=== PATIENT | male | born 1995 | race Caucasian/White ===

== ENCOUNTER 2018-04-23 12:04 | Inpatient (IN) | payer OTHER ==
[2018-04-23] MEDS ORDERED: SODIUM CHLORIDE 1,000 ML IV STA ×2 (12:23→14:04)
[2018-04-23] MEDS ORDERED: ONDANSETRON 4 MG/2 ML VIAL IVPUSH ONE (12:44)
[2018-04-23 12:54] LABS: BASO % 0.1 % (0-2.0); EOS % 0.4 % (0-4.5); HEMATOCRIT 45.6 % (35.4-49); HEMOGLOBIN 15.3 GM/dL (11.7-16.9); MCHC 33.5 g/dl (32.0-35.9); MEAN CELL VOLUME 86.4 fl (80-96); MONO % 3.9 % (3.8-10.2); NEUT % 92.6 % (42.8-82.8); PLATELET COUNT 234 K/MM3 (134-434); RBC 5.28 M/mm3 (4.00-5.60); RDW 12.4 % (11.9-15.9); WHITE BLOOD COUNT 15.4 K/mm3 (4.0-10.0)
--- NOTE | 2018-04-23 12:57 | PDOC ---
History of Present Illness - General History Source: Patient - History of Present Illness Initial Comments: 04/23/18 12:51 22m with pmh of IDDm presents to the ED for 10x episodes of vomiting since 4am last night. Has been eating pizza earlier that night at a friend's house. A vomiting infant was present in the household at that time but minimal interactions with the patient. Patient has not been able to tolerate food or drink by mouth. Last episode of vomiting was on his way to the ED. Has not taken insulin today since he has no food intake. No other symptoms. No sore throat, URI, URI symptoms or diarrhea. <Darrin Still - Last Filed: 04/23/18 14:59> <Taylor Musa - Last Filed: 04/24/18 14:00> - General Stated Complaint: DIZZNESS/ VOMITING Time Seen by Provider: 04/23/18 12:13 Past History - Past Medical History Asthma: Yes COPD: No Diabetes: Yes - Suicide/Smoking/Psychosocial Hx Smoking History: Current some day smoker Information on smoking cessation initiated: No Hx Alcohol Use: No Substance Use Type: None <Darrin Still - Last Filed: 04/23/18 14:59> <Taylor Musa - Last Filed: 04/24/18 14:00> - Past Medical History Allergies/Adverse Reactions: Allergies Allergy/AdvReac Type Severity Reaction Status Date / Time No Known Allergies Allergy Verified 04/23/18 12:14 Home Medications: Ambulatory Orders Insulin Detemir [Levemir Flextouch] 40 unit SQ AM 04/24/18 Insulin Detemir [Levemir Flextouch] 50 unit SQ HS 04/24/18 Review of Systems - Review of Systems Able to Perform ROS?: Yes Is the patient limited Citizen Of [place] proficient: No Constitutional: Yes: See HPI HEENTM: No: Symptoms Reported Respiratory: No: Symptoms reported Cardiac (ROS): No: Symptoms Reported ABD/GI: Yes: See HPI : No: Symptoms Reported Musculoskeletal: No: Symptoms Reported Integumentary: No: Symptoms Reported Endocrine: No: Symptoms Reported All Other Systems: Reviewed and Negative <Darrin Still - Last Filed: 04/23/18 14:59> *Physical Exam - Vital Signs Last Vital Signs Temp Pulse Resp BP Pulse Ox 97.9 F 75 18 95/55 L 99 04/23/18 12:09 04/23/18 12:09 04/23/18 12:09 04/23/18 12:09 04/23/18 12:09 - Physical Exam General Appearance: Yes: Appropriately Dressed, Mild Distress, Thin HEENT: positive: EOMI, CINTIA, Other (dry oral mucous membranes ) Respiratory/Chest: positive: Lungs Clear, Normal Breath Sounds. negative: Chest Tender, Respiratory Distress Cardiovascular: positive: Regular Rhythm, Regular Rate, S1, S2 Gastrointestinal/Abdominal: positive: Normal Bowel Sounds, Flat, Soft. negative : Tender Musculoskeletal: positive: Normal Inspection. negative: CVA Tenderness Extremity: positive: Normal Capillary Refill, Normal Inspection, Normal Range of Motion Integumentary: positive: Normal Color, Dry, Warm Neurologic: positive: Fully Oriented, Alert, Normal Mood/Affect, Normal Response <Darrin Still - Last Filed: 04/23/18 14:59> - Vital Signs Last Vital Signs Temp Pulse Resp BP Pulse Ox 98.0 F 80 18 128/61 100 04/24/18 10:00 04/24/18 10:00 04/24/18 10:00 04/24/18 10:00 04/24/18 09:00 <Taylor Musa - Last Filed: 04/24/18 14:00> Moderate Sedation - Procedure Monitoring Vital Signs: Procedure Monitoring Vital Signs Temperature 97.9 F 04/23/18 12:09 Pulse Rate 75 04/23/18 12:09 Respiratory Rate 18 04/23/18 12:09 Blood Pressure 95/55 L 04/23/18 12:09 O2 Sat by Pulse Oximetry (%) 99 04/23/18 12:09 <Darrin Still - Last Filed: 04/23/18 14:59> - Procedure Monitoring Vital Signs: Procedure Monitoring Vital Signs Temperature 98.0 F 04/24/18 10:00 Pulse Rate 80 04/24/18 10:00 Respiratory Rate 18 04/24/18 10:00 Blood Pressure 128/61 04/24/18 10:00 O2 Sat by Pulse Oximetry (%) 100 04/24/18 09:00 <Taylor Musa - Last Filed: 04/24/18 14:00> ED Treatment Course - LABORATORY CBC & Chemistry Diagram: 04/23/18 12:30 04/23/18 12:30 <StillDarrin - Last Filed: 04/23/18 14:59> - LABORATORY CBC & Chemistry Diagram: 04/24/18 06:10 04/24/18 10:06 - ADDITIONAL ORDERS Additional order review: 04/23/18 04/23/18 04/23/18 15:14 14:21 12:30 RBC 5.28 MCV 86.4 MCHC 33.5 RDW 12.4 MPV 8.0 D Neutrophils % 92.6 H D Lymphocytes % 3.0 L D Monocytes % 3.9 Eosinophils % 0.4 Basophils % 0.1 POC Glucometer 348 377 - Medications Given in the ED: ED Medications Discontinued Medications Generic Name Dose Route Start Last Admin Trade Name Freq PRN Reason Stop Dose Admin Acetaminophen 1,000 mg 04/23/18 14:01 04/23/18 14:13 Ofirmev Injection - IVPB 04/23/18 14:02 1,000 mg ONCE ONE Administration Acetaminophen 1,000 mg 04/23/18 16:28 04/23/18 18:47 Ofirmev Injection - IVPB 1,000 mg Q6H PRN Administration PAIN LEVEL 6-10 Al Hydroxide/Mg Hydroxide 30 ml 04/23/18 14:01 04/23/18 14:13 Mylanta Oral Suspension - PO 04/23/18 14:02 30 ml ONCE ONE Administration Sodium Chloride 1,000 mls @ 1,000 mls/hr 04/23/18 12:23 04/23/18 12:39 Normal Saline - IV 04/23/18 13:22 1,000 mls/hr ASDIR STA Administration Famotidine/Sodium Chloride 20 mg in 50 mls @ 100 mls/hr 04/23/18 14:01 14:13 Pepcid 20 Mg Premixed Ivpb - IVPB 04/23/18 14:30 100 mls/hr ONCE ONE Administration Sodium Chloride 1,000 mls @ 1,000 mls/hr 04/23/18 14:04 04/23/18 14:13 Normal Saline - IV 04/23/18 15:03 1,000 mls/hr ASDIR STA Administration Sodium Chloride 1,000 mls @ 500 mls/hr 04/23/18 14:30 04/23/18 15:11 1/2 Normal Saline IV 500 mls/hr ASDIR MARTHA Administration Potassium Chloride 10 meq in 100 mls @ 100 mls/hr 04/23/18 14:30 04/23/18 16: 03 Potassium Chloride 10 Meq Premix Ivpb - IVPB 04/23/18 16:29 100 mls/hr Q60M MARTHA Administration Sodium Chloride 1,000 mls @ 250 mls/hr 04/23/18 18:20 04/24/18 04:56 1/2 Normal Saline IV 250 mls/hr ASDIR MARTHA Administration Sodium Chloride 1,000 mls @ 150 mls/hr 04/24/18 09:45 04/24/18 10:11 Normal Saline - IV 150 mls/hr ASDIR MARTHA Administration Insulin Aspart 1 vial 04/23/18 22:00 04/24/18 11:27 Novolog Vial Sliding Scale - SQ 4 units ACHS MARTHA Administration Protocol Insulin Aspart 2 units 04/24/18 06:25 04/24/18 06:44 Novolog Vial SQ 04/24/18 06:26 Not Given ONCE ONE Protocol Insulin Detemir 10 units 04/23/18 18:47 04/23/18 18:57 Levemir Vial SQ 04/23/18 18:48 10 units ONCE ONE Administration Insulin Detemir 10 units 04/24/18 07:00 04/24/18 06:43 Levemir Vial SQ 10 units BID@[id number],2200 MARTHA Administration Insulin Human Regular 10 units 04/23/18 14:50 04/23/18 15:43 Novolin R Vial *For Ivpush Or Iv Drip Only* SQ 04/23/18 14:51 Not Given ONCE ONE Insulin Human Regular 10 units 04/23/18 15:23 04/23/18 15:20 Novolin R Vial *For Ivpush Or Iv Drip Only* IVPUSH 04/23/18 15:24 10 units ONCE ONE Administration Morphine Sulfate 2 mg 04/23/18 15:21 04/23/18 15:42 Morphine Injection - IVPUSH 04/23/18 15:22 2 mg ONCE ONE Administration Ondansetron HCl 4 mg 04/23/18 12:44 04/23/18 13:24 Zofran Injection IVPUSH 04/23/18 12:45 4 mg ONCE ONE Administration Ondansetron HCl 4 mg 04/23/18 16:27 04/23/18 18:47 Zofran Injection IVPUSH 4 mg Q4H PRN Administration NAUSEA AND/OR VOMITING Potassium Chloride 20 meq 04/23/18 14:20 04/23/18 14:27 Potassium Chloride 20 Meq Premix Ivpb - IVPB 04/23/18 14:21 Not Given ONCE ONE <Taylor Musa - Last Filed: 04/24/18 14:00> Medical Decision Making - Medical Decision Making 04/23/18 12:56 22m with vomiting since 4am. Likely viral enteritis vs food intoxication. Less likely DKA. Will check basic labs, US and give NS for fluid replenishment as zofran for nausea. 04/23/18 14:20 Corrected glucose: 141. Anion gap with correctd glucose: 21. glcose 350's, 1+ acetone with 2+ urine ketones. Patient in mild DKA, probably triggered by infection. Will switch to half normal saline, supplement potassium and give insulin. 04/23/18 15:13 Admitted to med surg obs <Darrin Still - Last Filed: 04/23/18 14:59> *DC/Admit/Observation/Transfer - Discharge Dispostion Decision to Admit order: Yes <Darrin Still - Last Filed: 04/23/18 14:59> - Discharge Dispostion Decision to Admit order: Yes <Taylor Musa - Last Filed: 04/24/18 14:00> Diagnosis at time of Disposition: DKA (diabetic ketoacidoses), Dehydration, Type 1 diabetes mellitus - Discharge Dispostion Condition at time of disposition: Good
--- NOTE | 2018-04-23 13:01 | PDOC ---
Attending Attestation - Resident Resident Name: Darrin Still - ED Attending Attestation I have performed the following: I have examined & evaluated the patient, The case was reviewed & discussed with the resident, I agree w/resident's findings & plan - HPI HPI: 04/23/18 13:01 The patient is a 22 year old male, with a significant past medical history of diabetes type I, who presents to the emergency department with vomiting and diarrhea since 4AM. He states he ate pizza at a friends house and the friends baby was sick. He denies blood in either the emesis or loose stools. He reports about 10 episodes of emesis. He denies abdominal pain. compliant with his insulin regimen. The patient denies chest pain, shortness of breath, headache and dizziness. The patient denies fever, chills, and constipation. The patient denies dysuria, frequency, urgency and hematuria. Allergies: NKDA Past surgical history: none reported Social history: denies toxic habits - Physicial Exam PE: 04/23/18 14:02 NAD, well appearing, dry membranes, nl conjunctiva, anicteric; neck supple. lungs clear, RRR, abdomen soft nontender, no rebound or guarding.. STUART x4, no focal neuro deficits. No peripheral edema. normal color for ethnicity, WWP. - Medical Decision Making 04/23/18 14:02 History of present illness documented DDx diagnosis includes DKA, hyperglycemia, dehydration, electrolyte/metabolic derangements, colitis, food poisoning. Acute gastroenteritis, viral syndrome Vital signs reviewed, blood pressure, but mentating, no tachycardia and no respiratory distress. Soft and nontender abdomen, does have some nausea and vomiting, nonbloody and nonbilious. ED course here includes IV fluid hydration, antiemetics, analgesia GI cocktail. labs and lytes with mild leukocytosis and ketones on UA. +ketones and acetones. AGE vs food poisoning, precipitating his mild DKA presentation. Insulin SQ 10 units x1 dose, on half normal saline with potassium repletion. no gap acidosis, well appearing otherwise, malaised 2/2 vomiting - treat as mild case. no imaging indicated at this time, as no abdominal sx, no rebound or guarding. encouraging PO intake, requesting to drink fluids. inpatient team ordered additional insulin prior to optimal onset and effect on glucose, should not be given. rpt FS after an hour from first insulin ordered in the ED. dispo: admit for mild DKA/dehydration from AGE vs food poisoning. 04/23/18 16:39
[2018-04-23] MEDS ORDERED: ONDANSETRON 4 MG/2 ML VIAL ONE (13:21)
[2018-04-23 13:29] LABS: ALBUMIN 4.2 g/dl (3.4-5.0); ALK PHOS 55 U/L (45-117); ANION GAP 16 MMOL/L (8-16); BILIRUBIN,TOTAL 0.7 mg/dL (0.2-1); BLOOD UREA NITROGEN 17 mg/dL (7-18); CHLORIDE 101 mmol/L (98-107); CO2 19 mmol/L (21-32); CREATININE 0.9 mg/dL (0.55-1.3); POTASSIUM 4.5 mmol/L (3.5-5.1); SGOT/AST 12 U/L (15-37); SGPT/ALT 23 U/L (13-61); SODIUM 136 mmol/L (136-145); TOT PROT 7.4 g/dl (6.4-8.2)
[2018-04-23 13:35] LABS: GLUCOSE,RANDOM 389 mg/dL (74-106)
[2018-04-23 13:50] LABS: URINE APPEARANCE CLEAR; URINE BILIRUBIN NEGATIVE (<2.0 mg/dL); URINE COLOR STRAW; URINE GLUCOSE (UA) 3+ (NEGATIVE); URINE KETONE 2+ (NEGATIVE); URINE LEUK ESTERASE NEGATIVE (NEGATIVE); URINE NITRITE NEGATIVE (NEGATIVE); URINE PROTEIN NEGATIVE (NEGATIVE); URINE UROBILINOGEN NEGATIVE mg/dL (0.2-1.0)
[2018-04-23] MEDS ORDERED: MAG HYDROX/AL HYDROX/SIMETH 30 ML UNIT-DOSE CUP PO ONE (14:01)
[2018-04-23] MEDS ORDERED: FAMOTIDINE 20 MG/50 ML IVPB 20 MG/50 ML MG IVPB ONE ×2 (14:01→14:09)
[2018-04-23] MEDS ORDERED: ACETAMINOPHEN 1000 MG/100 ML VIAL (NON FORMULARY) IVPB ONE (14:01)
[2018-04-23] MEDS ORDERED: ACETAMINOPHEN INJECTION 100 ML IVPB ONE (14:09)
[2018-04-23] MEDS ORDERED: MAG HYDROX/AL HYDROX/SIMETH 30 ML UNIT-DOSE CUP ONE (14:09)
[2018-04-23] MEDS ORDERED: POTASSIUM CHLORIDE 20 MEQ PREMIX IVPB 100 ML IVPB ONE (14:20)
[2018-04-23] MEDS ORDERED: SODIUM CHLORIDE 0.45% 1,000 ML IV SCH (14:30)
[2018-04-23 15:02] LABS: ANISOCYTOSIS 0; HELMET CELLS 0; HOWELL-JOLLY BODIES 0; MACROCYTOSIS 0; OVALOCYTE 0; PLATELET ESTIMATE NORMAL; ROULEAU 0; SICKELED CELLS 0; TARGET CELLS 0; TEAR DROP CELLS 0; TOXIC GRANULATION 0
[2018-04-23] MEDS ORDERED: KCL 10 MEQ IVPB 10 MEQ/100 ML INFUS.BAG IVPB ONE ×2 (15:03→16:05)
[2018-04-23] MEDS ORDERED: INSULIN REGULAR HUMAN 100 UNITS/ML *VIAL ONE ×2 (15:04→15:33)
[2018-04-23] MEDS: KCL 10 MEQ IVPB 10 MEQ/100 ML INFUS.BAG IVPB SCH ×2 (15:11→16:03)
[2018-04-23] MEDS: INSULIN REGULAR HUMAN 100 UNITS/ML *VIAL SQ ONE ×2 (15:11→15:43)
[2018-04-23] MEDS ORDERED: morphine CARPU-JECT 2 MG/1 ML DISP.SYRIN IVPUSH ONE (15:21)
[2018-04-23] MEDS ORDERED: INSULIN REGULAR HUMAN 100 UNITS/ML *VIAL IVPUSH ONE (15:23)
[2018-04-23] MEDS ORDERED: MORPHINE SULFATE 2 MG/ML VIAL ONE (15:33)
--- NOTE | 2018-04-23 15:33 | HP ---
CHIEF COMPLAINT: nausea, vomiting, pain abdomen PCP: HISTORY OF PRESENT ILLNESS: 22m with pmh of IDDm presents to the ED for multiple episodes of vomiting since 4am last night. Has been eating pizza earlier that night at a friend's house. A vomiting infant was present in the household at that time but minimal interactions with the patient. Pt states that he is unable to tolerate anything po. Reports episodes of vomiting in ed. He also reports pain abdomen 10/10 in intensity, cramping type, present in epigastric area, lasts for few seconds, gets better itself. Didn't take his insulin today as he was unable to keep any thing in. Pt also states that he is feeling dehydrated. This is his first episode of dka ER course was notable for: (1) IV fluid, insulin. (2) potassium Recent Travel: no PAST MEDICAL HISTORY: as above Social History: Smoking: no Alcohol:no Drugs: no Family History: Allergies No Known Allergies Allergy (Verified 04/23/18 12:14) HOME MEDICATIONS: Home Medications Medication Instructions Recorded Insulin (Novolog) [Novolog] 0 units SQ ASDIR 04/23/18 REVIEW OF SYSTEMS CONSTITUTIONAL: Absent: fever, chills, diaphoresis, generalized weakness, malaise, loss of appetite, weight change HEENT: Absent: rhinorrhea, nasal congestion, throat pain, throat swelling, difficulty swallowing, mouth swelling, ear pain, eye pain, visual changes CARDIOVASCULAR: Absent: chest pain, syncope, palpitations, irregular heart rate, lightheadedness , peripheral edema RESPIRATORY: Absent: cough, shortness of breath, dyspnea with exertion, orthopnea, wheezing, stridor, hemoptysis GASTROINTESTINAL: as above GENITOURINARY: Absent: dysuria, frequency, urgency, hesitancy, hematuria, flank pain, genital pain MUSCULOSKELETAL: Absent: myalgia, arthralgia, joint swelling, back pain, neck pain SKIN: Absent: rash, itching, pallor HEMATOLOGIC/IMMUNOLOGIC: Absent: easy bleeding, easy bruising, lymphadenopathy, frequent infections ENDOCRINE: Absent: unexplained weight gain, unexplained weight loss, heat intolerance, cold intolerance NEUROLOGIC: Absent: headache, focal weakness or paresthesias, PSYCHIATRIC: Absent: anxiety, depression, PHYSICAL EXAMINATION Vital Signs - 24 hr 04/23/18 04/23/18 12:09 15:25 Temperature 97.9 F Pulse Rate 75 Respiratory 18 Rate Blood Pressure 95/55 L O2 Sat by Pulse 99 100 Oximetry (%) GENERAL: Awake, alert, and fully oriented, in acute distress. HEAD: Normal with no signs of trauma. EYES: Pupils equal, round and reactive to light, extraocular movements intact, sclera anicteric, conjunctiva clear. No lid lag. EARS, NOSE, THROAT: Ears normal, nares patent, oropharynx clear without exudates. dry mucous membranes. NECK: Normal range of motion, supple without lymphadenopathy, JVD, or masses. LUNGS: Breath sounds equal, clear to auscultation bilaterally. No wheezes, and no crackles. No accessory muscle use. HEART: Regular rate and rhythm, normal S1 and S2 without murmur, rub or gallop. ABDOMEN: Soft, nontender, not distended, normoactive bowel sounds, no guarding, no rebound, no masses. MUSCULOSKELETAL: Normal range of motion at all joints. No bony deformities or tenderness. No CVA tenderness. UPPER EXTREMITIES: 2+ pulses, warm, well-perfused. No cyanosis. No clubbing. No peripheral edema. LOWER EXTREMITIES: 2+ pulses, warm, well-perfused. No calf tenderness. No peripheral edema. NEUROLOGICAL: Cranial nerves II-XII intact. SKIN: Warm, dry, Laboratory Results - last 24 hr 04/23/18 04/23/18 04/23/18 12:30 12:30 13:25 WBC 15.4 H RBC 5.28 Hgb 15.3 Hct 45.6 D MCV 86.4 MCH 29.0 D MCHC 33.5 RDW 12.4 Plt Count 234 MPV 8.0 D Absolute Neuts (auto) 14.3 H Neutrophils % 92.6 H D Neutrophils % (Manual) 92.1 H Band Neutrophils % 1.0 Lymphocytes % 3.0 L D Lymphocytes % (Manual) 2.9 L Monocytes % 3.9 Monocytes % (Manual) 3 L Eosinophils % 0.4 Eosinophils % (Manual) 0.0 Basophils % 0.1 Basophils % (Manual) 0.0 Myelocytes % (Man) 0 Promyelocytes % (Man) 0 Blast Cells % (Manual) 0 Nucleated RBC % 0 Metamyelocytes 0 Hypochromia 0 Toxic Granulation 0 Dohle Bodies 0 Platelet Estimate Normal Polychromasia 0 Poikilocytosis 0 Basophilic Stippling 0 Anisocytosis 0 Microcytosis 0 Macrocytosis 0 Spherocytes 0 Sickle Cells 0 Target Cells 0 Tear Drop Cells 0 Ovalocytes 0 Stomatocytes 0 Helmet Cells 0 Kauffman-Gage Bodies 0 Elmer Rings 0 [place] Cells 0 Acanthocytes (Spur) 0 Rouleaux 0 Fragmented RBCs 0 Schistocytes 0 Sodium 136 Potassium 4.5 Chloride 101 Carbon Dioxide 19 L Anion Gap 16 BUN 17 Creatinine 0.9 Creat Clearance w eGFR > 60 POC Glucometer Random Glucose 389 H* Calcium 9.0 Total Bilirubin 0.7 AST 12 L ALT 23 Alkaline Phosphatase 55 Total Protein 7.4 Albumin 4.2 Urine Color Straw Urine Appearance Clear Urine pH 6.0 Ur Specific [place] 1.035 Urine Protein Negative Urine Glucose (UA) 3+ H Urine Ketones 2+ H Urine Blood Negative Urine Nitrite Negative Urine Bilirubin Negative Urine Urobilinogen Negative Ur Leukocyte Esterase Negative Acetone, Qual 04/23/18 04/23/18 04/23/18 13:28 14:21 15:14 WBC RBC Hgb Hct MCV MCH MCHC RDW Plt Count MPV Absolute Neuts (auto) Neutrophils % Neutrophils % (Manual) Band Neutrophils % Lymphocytes % Lymphocytes % (Manual) Monocytes % Monocytes % (Manual) Eosinophils % Eosinophils % (Manual) Basophils % Basophils % (Manual) Myelocytes % (Man) Promyelocytes % (Man) Blast Cells % (Manual) Nucleated RBC % Metamyelocytes Hypochromia Toxic Granulation Dohle Bodies Platelet Estimate Polychromasia Poikilocytosis Basophilic Stippling Anisocytosis Microcytosis Macrocytosis Spherocytes Sickle Cells Target Cells Tear Drop Cells Ovalocytes Stomatocytes Helmet Cells Kauffman-Gage Bodies [place]mer Rings [place] Cells Acanthocytes (Spur) Rouleaux Fragmented RBCs Schistocytes Sodium Potassium Chloride Carbon Dioxide Anion Gap BUN Creatinine Creat Clearance w eGFR POC Glucometer 377 348 Random Glucose Calcium Total Bilirubin AST ALT Alkaline Phosphatase Total Protein Albumin Urine Color Urine Appearance Urine pH Ur Specific [place] Urine Protein Urine Glucose (UA) Urine Ketones Urine Blood Urine Nitrite Urine Bilirubin Urine Urobilinogen Ur Leukocyte Esterase Acetone, Qual Positive small 1+ ASSESSMENT/PLAN: Hyperglycemia. Ph not available to call dka, anion gap 16, bicarb 19, blood glucose 377 ketone positive. IV fluid 250 cc/hr 1/2 ns. Pt corrected NA 141 bgm q1h bmp every [id number] once anion gap is closed and pt is able to tolerate po give him long acting insulin and some thing to eat. monitor serum potassium. monitor intake/ output. monitor vitals. as repeat blood sugar is 233 pt can get sq insulin. nausea/ vomiting/ abdominal pain can be because of viral infection as pt has h/o contact or can be because of ketones. zofran prn iv acetaminophen prn avoid opioid iv fluid fluid: 1/2 ns 250ml/hr electrolyte: repeat bmp nutrition: npo dvt pro: scd dispo ; med surg Visit type - Emergency Visit Emergency Visit: Yes ED Registration Date: 04/23/18 Care time: The patient presented to the Emergency Department on the above date and was hospitalized for further evaluation of their emergent condition. - New Patient This patient is new to me today: Yes Date on this admission: 04/23/18 - Critical Care Critical Care patient: No
[2018-04-23] MEDS ORDERED: ONDANSETRON 4 MG/2 ML VIAL IVPUSH PRN (16:27)
[2018-04-23] MEDS ORDERED: ACETAMINOPHEN 1000 MG/100 ML VIAL (NON FORMULARY) IVPB PRN (16:28)
--- NOTE | 2018-04-23 16:54 | PN ---
Teaching Attending Note Name of Resident: Preston Isaacs ATTENDING PHYSICIAN STATEMENT I saw and evaluated the patient. I reviewed the resident's note and discussed the case with the resident. I agree with the resident's findings and plan as documented. SUBJECTIVE: Mr Reilly is a 22 year old male who comes in with abdominal pain, nausea, vomiting, and diarrhea. He was at a friends house last night and there was a baby who was throwing up. He also had some pizza there and was feeling well. However at 4am today he woke up and began to have nausea with vomiting. He also had diarrhea and abdominal pain. He was unable to keep anything down. He checked his sugar and it was elevated, but he did not take insulin secondary to his not being able to eat. He began to feel so bad and came in to the ED. He is still feeling very poorly. He has abdominal pain in his LLQ. He denies fevers , chills, lightheadedness, dizziness, passing out, chest pain, shortness of breath, difficulty or pain on urination, or swelling. He is currently lethargic secondary to receiving morphine. PMHx -Type 1 DM PSHx -none Allergies -NKDA SHx -negative FHx -negative ROS -full review of systems obtained, as per HPI and otherwise negative OBJECTIVE Last Vital Signs Temp Pulse Resp BP Pulse Ox 36.6 C 74 18 138/74 99 04/23/18 12:09 04/23/18 15:46 04/23/18 15:46 04/23/18 15:46 04/23/18 15:46 Gen: lethargic, nad Pulm: ctab w/o w/r/r CV: rrr w/o m/r/g Abd: +bs, s/nd, slight TTP in LLQ Ext: no c/c/e CBC, BMP 04/23/18 12:30 04/23/18 12:30 ASSESSMENT AND PLAN: -patient with mild DKA -admit to med/surg -aggressive hydration -patient without anion gap, will hold on insulin gtt at this time -FSBS q1h -repeat BMP to see if gap remains closed -if opens, will need to be on insulin gtt -if closed, will place on long acting levemir and SSI -npo currently, can place on diet if gap remains closed and feeling better -cause most likely viral gastroenteritis -supportive care Problem List - Problems (1) Type 1 diabetes mellitus Code(s): E10.9 - TYPE 1 DIABETES MELLITUS WITHOUT COMPLICATIONS (2) Viral gastroenteritis Code(s): A08.4 - VIRAL INTESTINAL INFECTION, UNSPECIFIED (3) DKA (diabetic ketoacidoses) Code(s): E13.10 - OTH DIABETES MELLITUS WITH KETOACIDOSIS WITHOUT COMA
[2018-04-23 18:29] VITALS: BMI 20.9
[2018-04-23] MEDS: SODIUM CHLORIDE 0.45% 1,000 ML IV SCH ×2 (18:40→22:39)
[2018-04-23 18:42] LABS: GLUCOSE,RANDOM 207 mg/dL (74-106)
[2018-04-23 18:43] LABS: ANION GAP 14 MMOL/L (8-16); BLOOD UREA NITROGEN 16 mg/dL (7-18); CALCIUM 8.3 mg/dL (8.5-10.1); CHLORIDE 107 mmol/L (98-107); CO2 16 mmol/L (21-32); CREATININE 0.7 mg/dL (0.55-1.3); POTASSIUM 4.6 mmol/L (3.5-5.1); SODIUM 137 mmol/L (136-145)
[2018-04-23] MEDS ORDERED: INSULIN (LEVEMIR) 100 UNITS/ML UNITS SQ ONE ×2 (18:47→18:56)
[2018-04-23] MEDS ORDERED: INSULIN (LEVEMIR) 100 UNITS/ML UNITS SQ SCH ×2 (22:00)
[2018-04-23] MEDS: INSULIN SLIDING SCALE (NOVOLOG) 1 VIAL SQ SCH (22:02)
[2018-04-23 22:37] LABS: ANION GAP 15 MMOL/L (8-16); BLOOD UREA NITROGEN 13 mg/dL (7-18); CALCIUM 8.3 mg/dL (8.5-10.1); CHLORIDE 103 mmol/L (98-107); CO2 15 mmol/L (21-32); CREATININE 0.9 mg/dL (0.55-1.3); GLUCOSE,RANDOM 277 mg/dL (74-106); POTASSIUM 4.8 mmol/L (3.5-5.1); SODIUM 133 mmol/L (136-145)
[2018-04-24] MEDS: SODIUM CHLORIDE 0.45% 1,000 ML IV SCH (04:56)
[2018-04-24] MEDS: INSULIN SLIDING SCALE (NOVOLOG) 1 VIAL SQ SCH ×2 (06:07→11:27)
[2018-04-24] MEDS ORDERED: INSULIN (NOVOLOG) ASPART 100 UNITS/ML 10ML VIAL SQ ONE (06:25)
[2018-04-24] MEDS ORDERED: INSULIN (LEVEMIR) 100 UNITS/ML UNITS SQ SCH (07:00)
[2018-04-24 07:29] LABS: BASO % 0.3 % (0-2.0); EOS % 0.1 % (0-4.5); HEMATOCRIT 41.7 % (35.4-49); HEMOGLOBIN 13.9 GM/dL (11.7-16.9); LYMPH % 8.8 % (8-40); MCH 28.7 pg (25.7-33.7); MCHC 33.4 g/dl (32.0-35.9); MEAN CELL VOLUME 86.1 fl (80-96); MEAN PLT VOLUME 8.1 fl (7.5-11.1); MONO % 7.3 % (3.8-10.2); NEUT % 83.5 % (42.8-82.8); PLATELET COUNT 225 K/MM3 (134-434); RBC 4.84 M/mm3 (4.00-5.60); RDW 12.2 % (11.9-15.9); WHITE BLOOD COUNT 10.8 K/mm3 (4.0-10.0)
[2018-04-24 08:16] LABS: ALBUMIN 3.4 g/dl (3.4-5.0); ALK PHOS 53 U/L (45-117); ANION GAP 17 MMOL/L (8-16); BILIRUBIN,TOTAL 0.5 mg/dL (0.2-1); BLOOD UREA NITROGEN 12 mg/dL (7-18); CHLORIDE 102 mmol/L (98-107); CO2 12 mmol/L (21-32); POTASSIUM 4.1 mmol/L (3.5-5.1); SGOT/AST 7 U/L (15-37); SGPT/ALT 19 U/L (13-61); SODIUM 130 mmol/L (136-145); TOT PROT 6.3 g/dl (6.4-8.2)
[2018-04-24] MEDS ORDERED: SODIUM CHLORIDE 1,000 ML IV SCH (09:45)
[2018-04-24 10:31] LABS: ARTERIAL BLD GAS O2 SATURATION 97.9 % (90-98.9); ARTERIAL BLOOD GAS BASE EXCESS -8.4 meq/l (-2-2); ARTERIAL BLOOD GAS PCO2 30.1 mmHg (35-45); ARTERIAL BLOOD GAS pH 7.34 (7.35-7.45)
[2018-04-24 10:42] VITALS: BP 128/61; PULSE 80; TEMP 98
[2018-04-24 11:00] LABS: ANION GAP 12 MMOL/L (8-16); BLOOD UREA NITROGEN 13 mg/dL (7-18); CALCIUM 8.4 mg/dL (8.5-10.1); CHLORIDE 102 mmol/L (98-107); CO2 18 mmol/L (21-32); GLUCOSE,RANDOM 285 mg/dL (74-106); POTASSIUM 4.3 mmol/L (3.5-5.1); SODIUM 132 mmol/L (136-145)
--- NOTE | 2018-04-24 11:35 | EKG ---
Test Reason : Blood Pressure : / mmHG Vent. Rate : 068 BPM Atrial Rate : 068 BPM P-R Int : 156 ms QRS Dur : 098 ms QT Int : 388 ms P-R-T Axes : 075 081 047 degrees QTc Int : 412 ms SINUS RHYTHM WITH MARKED SINUS ARRHYTHMIA POSSIBLE LEFT ATRIAL ENLARGEMENT NO PREVIOUS ECGS AVAILABLE Confirmed by MARIANA FRAZIER MD ([id number]) on 04/24/2018 11:35:26 AM Referred By: Confirmed By:MARIANA FRAZEIR MD
--- NOTE | 2018-04-24 11:48 | DS ---
Physical Exam: SUBJECTIVE: Patient seen and examined OBJECTIVE: Vital Signs Period Temp Pulse Resp BP Sys/Rodriges Pulse Ox Last 24 Hr 97.9 F-99.8 F 68-92 16-18 95-138/45-83 99-100 PHYSICAL EXAM GENERAL: The patient is awake, alert, and fully oriented, in no acute distress. HEAD: Normal with no signs of trauma. EYES: PERRL, extraocular movements intact, sclera anicteric, conjunctiva clear. ENT: Ears normal, nares patent, oropharynx clear without exudates, moist mucous membranes. NECK: Trachea midline, full range of motion, supple. LUNGS: Breath sounds equal, clear to auscultation bilaterally, no wheezes, no crackles, no accessory muscle use. HEART: Regular rate and rhythm, S1, S2 without murmur, rub or gallop. ABDOMEN: Soft, nontender, nondistended, normoactive bowel sounds, no guarding, no rebound, no hepatosplenomegaly, no masses. EXTREMITIES: 2+ pulses, warm, well-perfused, no edema. NEUROLOGICAL: Cranial nerves II through XII grossly intact. Normal speech, gait not observed. PSYCH: Normal mood, normal affect. SKIN: Warm, dry, normal turgor, no rashes or lesions noted. LABS Laboratory Results - last 24 hr 04/23/18 04/23/18 04/23/18 12:30 12:30 13:25 WBC 15.4 H RBC 5.28 Hgb 15.3 Hct 45.6 D MCV 86.4 MCH 29.0 D MCHC 33.5 RDW 12.4 Plt Count 234 MPV 8.0 D Absolute Neuts (auto) 14.3 H Neutrophils % 92.6 H D Neutrophils % (Manual) 92.1 H Band Neutrophils % 1.0 Lymphocytes % 3.0 L D Lymphocytes % (Manual) 2.9 L Monocytes % 3.9 Monocytes % (Manual) 3 L Eosinophils % 0.4 Eosinophils % (Manual) 0.0 Basophils % 0.1 Basophils % (Manual) 0.0 Myelocytes % (Man) 0 Promyelocytes % (Man) 0 Blast Cells % (Manual) 0 Nucleated RBC % 0 Metamyelocytes 0 Hypochromia 0 Toxic Granulation 0 Dohle Bodies 0 Platelet Estimate Normal Polychromasia 0 Poikilocytosis 0 Basophilic Stippling 0 Anisocytosis 0 Microcytosis 0 Macrocytosis 0 Spherocytes 0 Sickle Cells 0 Target Cells 0 Tear Drop Cells 0 Ovalocytes 0 Stomatocytes 0 Helmet Cells 0 [place] Bodies 0 [place] Rings 0 Susan Cells 0 Acanthocytes (Spur) 0 Rouleaux 0 Fragmented RBCs 0 Schistocytes 0 Puncture Site ABG pH ABG pCO2 at Pt Temp ABG pO2 at Pt Temp ABG HCO3 ABG O2 Sat (Measured) ABG O2 Content ABG Base Excess Jude Test Oxygen Flow Rate Sodium 136 Potassium 4.5 Chloride 101 Carbon Dioxide 19 L Anion Gap 16 BUN 17 Creatinine 0.9 Creat Clearance w eGFR > 60 POC Glucometer Random Glucose 389 H* Calcium 9.0 Magnesium Total Bilirubin 0.7 AST 12 L ALT 23 Alkaline Phosphatase 55 Total Protein 7.4 Albumin 4.2 Urine Color Straw Urine Appearance Clear Urine pH 6.0 Ur Specific Weaver 1.035 Urine Protein Negative Urine Glucose (UA) 3+ H Urine Ketones 2+ H Urine Blood Negative Urine Nitrite Negative Urine Bilirubin Negative Urine Urobilinogen Negative Ur Leukocyte Esterase Negative Acetone, Qual 04/23/18 04/23/18 04/23/18 13:28 14:21 15:14 WBC RBC Hgb Hct MCV MCH MCHC RDW Plt Count MPV Absolute Neuts (auto) Neutrophils % Neutrophils % (Manual) Band Neutrophils % Lymphocytes % Lymphocytes % (Manual) Monocytes % Monocytes % (Manual) Eosinophils % Eosinophils % (Manual) Basophils % Basophils % (Manual) Myelocytes % (Man) Promyelocytes % (Man) Blast Cells % (Manual) Nucleated RBC % Metamyelocytes Hypochromia Toxic Granulation Dohle Bodies Platelet Estimate Polychromasia Poikilocytosis Basophilic Stippling Anisocytosis Microcytosis Macrocytosis Spherocytes Sickle Cells Target Cells Tear Drop Cells Ovalocytes Stomatocytes Helmet Cells [place] Bodies [place] Rings [place] Cells Acanthocytes (Spur) Rouleaux Fragmented RBCs Schistocytes Puncture Site ABG pH ABG pCO2 at Pt Temp ABG pO2 at Pt Temp ABG HCO3 ABG O2 Sat (Measured) ABG O2 Content ABG Base Excess Jude Test Oxygen Flow Rate Sodium Potassium Chloride Carbon Dioxide Anion Gap BUN Creatinine Creat Clearance w eGFR POC Glucometer 377 348 Random Glucose Calcium Magnesium Total Bilirubin AST ALT Alkaline Phosphatase Total Protein Albumin Urine Color Urine Appearance Urine pH Ur Specific Weaver Urine Protein Urine Glucose (UA) Urine Ketones Urine Blood Urine Nitrite Urine Bilirubin Urine Urobilinogen Ur Leukocyte Esterase Acetone, Qual Positive small 1+ 04/23/18 04/23/18 04/23/18 16:14 16:56 18:20 WBC RBC Hgb Hct MCV MCH MCHC RDW Plt Count MPV Absolute Neuts (auto) Neutrophils % Neutrophils % (Manual) Band Neutrophils % Lymphocytes % Lymphocytes % (Manual) Monocytes % Monocytes % (Manual) Eosinophils % Eosinophils % (Manual) Basophils % Basophils % (Manual) Myelocytes % (Man) Promyelocytes % (Man) Blast Cells % (Manual) Nucleated RBC % Metamyelocytes Hypochromia Toxic Granulation Dohle Bodies Platelet Estimate Polychromasia Poikilocytosis Basophilic Stippling Anisocytosis Microcytosis Macrocytosis Spherocytes Sickle Cells Target Cells Tear Drop Cells Ovalocytes Stomatocytes Helmet Cells [place] Bodies [place] Cells Acanthocytes (Spur) Rouleaux Fragmented RBCs Schistocytes Puncture Site ABG pH ABG pCO2 at Pt Temp ABG pO2 at Pt Temp ABG HCO3 ABG O2 Sat (Measured) ABG O2 Content ABG Base Excess Jude Test Oxygen Flow Rate Sodium 137 Potassium 4.6 Chloride 107 Carbon Dioxide 16 L Anion Gap 14 BUN 16 Creatinine 0.7 Creat Clearance w eGFR > 60 POC Glucometer 233 252 Random Glucose 207 H Calcium 8.3 L Magnesium Total Bilirubin AST ALT Alkaline Phosphatase Total Protein Albumin Urine Color Urine Appearance Urine pH Ur Specific Weaver Urine Protein Urine Glucose (UA) Urine Ketones Urine Blood Urine Nitrite Urine Bilirubin Urine Urobilinogen Ur Leukocyte Esterase Acetone, Qual 04/23/18 04/23/18 04/24/18 21:20 22:00 02:11 WBC RBC Hgb Hct MCV MCH MCHC RDW Plt Count MPV Absolute Neuts (auto) Neutrophils % Neutrophils % (Manual) Band Neutrophils % Lymphocytes % Lymphocytes % (Manual) Monocytes % Monocytes % (Manual) Eosinophils % Eosinophils % (Manual) Basophils % Basophils % (Manual) Myelocytes % (Man) Promyelocytes % (Man) Blast Cells % (Manual) Nucleated RBC % Metamyelocytes Hypochromia Toxic Granulation Dohle Bodies Platelet Estimate Polychromasia Poikilocytosis Basophilic Stippling Anisocytosis Microcytosis Macrocytosis Spherocytes Sickle Cells Target Cells Tear Drop Cells Ovalocytes Stomatocytes Helmet Cells [place] Bodies [place] Cells Acanthocytes (Spur) Rouleaux Fragmented RBCs Schistocytes Puncture Site ABG pH ABG pCO2 at Pt Temp ABG pO2 at Pt Temp ABG HCO3 ABG O2 Sat (Measured) ABG O2 Content ABG Base Excess Jude Test Oxygen Flow Rate Sodium 133 L Potassium 4.8 Chloride 103 Carbon Dioxide 15 L Anion Gap 15 BUN 13 Creatinine 0.9 Creat Clearance w eGFR > 60 POC Glucometer 325 249 Random Glucose 277 H Calcium 8.3 L Magnesium Total Bilirubin AST ALT Alkaline Phosphatase Total Protein Albumin Urine Color Urine Appearance Urine pH Ur Specific [place] Urine Protein Urine Glucose (UA) Urine Ketones Urine Blood Urine Nitrite Urine Bilirubin Urine Urobilinogen Ur Leukocyte Esterase Acetone, Qual 04/24/18 04/24/18 04/24/18 05:39 06:10 06:10 WBC 10.8 H RBC 4.84 Hgb 13.9 Hct 41.7 MCV 86.1 MCH 28.7 MCHC 33.4 RDW 12.2 Plt Count 225 MPV 8.1 Absolute Neuts (auto) 9.0 H Neutrophils % 83.5 H Neutrophils % (Manual) Band Neutrophils % Lymphocytes % 8.8 D Lymphocytes % (Manual) Monocytes % 7.3 D Monocytes % (Manual) Eosinophils % 0.1 Eosinophils % (Manual) Basophils % 0.3 Basophils % (Manual) Myelocytes % (Man) Promyelocytes % (Man) Blast Cells % (Manual) Nucleated RBC % 0 Metamyelocytes Hypochromia Toxic Granulation Dohle Bodies Platelet Estimate Polychromasia Poikilocytosis Basophilic Stippling Anisocytosis Microcytosis Macrocytosis Spherocytes Sickle Cells Target Cells Tear Drop Cells Ovalocytes Stomatocytes Helmet Cells [place] Bodies [place] Cells Acanthocytes (Spur) Rouleaux Fragmented RBCs Schistocytes Puncture Site ABG pH ABG pCO2 at Pt Temp ABG pO2 at Pt Temp ABG HCO3 ABG O2 Sat (Measured) ABG O2 Content ABG Base Excess Jude Test Oxygen Flow Rate Sodium 130 L Potassium 4.1 Chloride 102 Carbon Dioxide 12 L Anion Gap 17 H BUN 12 Creatinine 1.0 Creat Clearance w eGFR > 60 POC Glucometer 338 Random Glucose 311 H* Calcium 8.0 L Magnesium 2.0 Total Bilirubin 0.5 AST 7 L ALT 19 Alkaline Phosphatase 53 Total Protein 6.3 L Albumin 3.4 Urine Color Urine Appearance Urine pH Ur Specific Weaver Urine Protein Urine Glucose (UA) Urine Ketones Urine Blood Urine Nitrite Urine Bilirubin Urine Urobilinogen Ur Leukocyte Esterase Acetone, Qual 04/24/18 04/24/18 04/24/18 09:46 10:06 10:20 WBC RBC Hgb Hct MCV MCH MCHC RDW Plt Count MPV Absolute Neuts (auto) Neutrophils % Neutrophils % (Manual) Band Neutrophils % Lymphocytes % Lymphocytes % (Manual) Monocytes % Monocytes % (Manual) Eosinophils % Eosinophils % (Manual) Basophils % Basophils % (Manual) Myelocytes % (Man) Promyelocytes % (Man) Blast Cells % (Manual) Nucleated RBC % Metamyelocytes Hypochromia Toxic Granulation Dohle Bodies Platelet Estimate Polychromasia Poikilocytosis Basophilic Stippling Anisocytosis Microcytosis Macrocytosis Spherocytes Sickle Cells Target Cells Tear Drop Cells Ovalocytes Stomatocytes Helmet Cells [place] Bodies [place] Cells Acanthocytes (Spur) Rouleaux Fragmented RBCs Schistocytes Puncture Site Right radial ABG pH 7.34 L ABG pCO2 at Pt Temp 30.1 L ABG pO2 at Pt Temp 108.0 H ABG HCO3 15.8 L ABG O2 Sat (Measured) 97.9 ABG O2 Content 18.8 ABG Base Excess -8.4 L Jued Test No Result Required. Oxygen Flow Rate Room air Sodium 132 L Potassium 4.3 Chloride 102 Carbon Dioxide 18 L Anion Gap 12 BUN 13 Creatinine 1.0 Creat Clearance w eGFR > 60 POC Glucometer 274 Random Glucose 285 H Calcium 8.4 L Magnesium Total Bilirubin AST ALT Alkaline Phosphatase Total Protein Albumin Urine Color Urine Appearance Urine pH Ur Specific Weaver Urine Protein Urine Glucose (UA) Urine Ketones Urine Blood Urine Nitrite Urine Bilirubin Urine Urobilinogen Ur Leukocyte Esterase Acetone, Qual 04/24/18 11:26 WBC RBC Hgb Hct MCV MCH MCHC RDW Plt Count MPV Absolute Neuts (auto) Neutrophils % Neutrophils % (Manual) Band Neutrophils % Lymphocytes % Lymphocytes % (Manual) Monocytes % Monocytes % (Manual) Eosinophils % Eosinophils % (Manual) Basophils % Basophils % (Manual) Myelocytes % (Man) Promyelocytes % (Man) Blast Cells % (Manual) Nucleated RBC % Metamyelocytes Hypochromia Toxic Granulation Dohle Bodies Platelet Estimate Polychromasia Poikilocytosis Basophilic Stippling Anisocytosis Microcytosis Macrocytosis Spherocytes Sickle Cells Target Cells Tear Drop Cells Ovalocytes Stomatocytes Helmet Cells [place] Bodies [place] Cells Acanthocytes (Spur) Rouleaux Fragmented RBCs Schistocytes Puncture Site ABG pH ABG pCO2 at Pt Temp ABG pO2 at Pt Temp ABG HCO3 ABG O2 Sat (Measured) ABG O2 Content ABG Base Excess Jude Test Oxygen Flow Rate Sodium Potassium Chloride Carbon Dioxide Anion Gap BUN Creatinine Creat Clearance w eGFR POC Glucometer 241 Random Glucose Calcium Magnesium Total Bilirubin AST ALT Alkaline Phosphatase Total Protein Albumin Urine Color Urine Appearance Urine pH Ur Specific Weaver Urine Protein Urine Glucose (UA) Urine Ketones Urine Blood Urine Nitrite Urine Bilirubin Urine Urobilinogen Ur Leukocyte Esterase Acetone, Qual HOSPITAL COURSE: Date of Admission:04/23/18 Date of Discharge: 04/24/18 Minutes to complete discharge: 45 Discharge Summary Reason For Visit: DIABETIC KETOACIDOSIS Current Active Problems DKA (diabetic ketoacidoses) (Acute) Type 1 diabetes mellitus (Acute) Viral gastroenteritis (Acute) Condition: Good - Instructions Diet, Activity, Other Instructions: Follow up with your primary doctor or manager sports in 1-2 days take all your medicines as you were taking it before. Continue with your Insulin as you were taking it before Try to eat healthy. Follow healthy life style. Drink plenty of liquid Check your sugar regularly if it starts going up contact your primary doctor and your pcp Referrals: Hermelinda Rosario MD [Staff Physician] - Disposition: HOME - Home Medications Comprehensive Discharge Medication List: Ambulatory Orders Insulin Detemir [Levemir Flextouch] 40 unit SQ AM 04/24/18 Insulin Detemir [Levemir Flextouch] 50 unit SQ HS 04/24/18 This patient is new to me today: Yes Date on this admission: 04/29/18 Emergency Visit: Yes ED Registration Date: 04/23/18 Care time: The patient presented to the Emergency Department on the above date and was hospitalized for further evaluation of their emergent condition. Critical Care patient: No - Discharge Referral Referred to [facility] No
[2018-04-24 12:03] LABS: GLUCOSE,RANDOM 311 mg/dL (74-106)
== END 2018-04-24 12:53 | disposition home or self-care (01) | DRG 420 ==
LOC: JER 12:04 → JERBED 14:51 → OBSVTOIN 15:30 → J8W 17:46
PROVIDERS: ADMIT Internal Medicine; ATTEND Internal Medicine
DX: E10.10 Type 1 diabetes mellitus with ketoacidosis without coma (principal); J45.909 Unspecified asthma, uncomplicated; E86.0 Dehydration; A08.4 Viral intestinal infection, unspecified
CPT/HCPCS: 36415; 36600; 80048; 80053; 81003; 82009; 82803; 82962; 83735; 85025; 93005; 93010; 99285-25; G0378; J0131; J7030

== ENCOUNTER 2020-05-29 02:24 | Emergency (ER) | payer OTHER ==
[2020-05-29 02:45] VITALS: BP 125/86; PULSE 51; BMI 21.6
[2020-05-29 04:41] VITALS: TEMP 98.2
[2020-05-29] MEDS ORDERED: DEXTROSE 50%-WATER - 25 GM/50 ML VIAL IVPUSH ONE (04:43)
[2020-05-29] MEDS ORDERED: DEXTROSE 50%-WATER 25 GM/50 ML DISP.SYRIN ONE (04:44)
[2020-05-29] MEDS ORDERED: DEXTROSE 5%-0.45% SALINE 1,000 ML IV SCH (04:45)
[2020-05-29 05:50] LABS: BASO % 0.4 % (0-2.0); EOS % 0.4 % (0-4.5); HEMATOCRIT 41.7 % (35.4-49); LYMPH % 12.8 % (8-40); MCHC 33.6 g/dl (32.0-35.9); MEAN CELL VOLUME 86.2 fl (80-96); MEAN PLT VOLUME 7.5 fl (7.5-11.1); MONO % 4.2 % (3.8-10.2); NEUT % 82.2 % (42.8-82.8); PLATELET COUNT 235 K/MM3 (134-434); RBC 4.83 M/mm3 (4.00-5.60); RDW 12.7 % (11.9-15.9); WHITE BLOOD COUNT 16.7 K/mm3 (4.0-10.0)
[2020-05-29 06:06] LABS: POTASSIUM 3.8 mmol/L (3.5-5.1)
[2020-05-29 06:08] LABS: CALCIUM 9.1 mg/dL (8.5-10.1)
[2020-05-29 06:09] LABS: BLOOD UREA NITROGEN 19.6 mg/dL (7-18); MAGNESIUM 2.4 mg/dL (1.8-2.4)
[2020-05-29 06:12] LABS: CREATININE 0.8 mg/dL (0.55-1.3)
[2020-05-29 06:14] LABS: BILIRUBIN,TOTAL 0.2 mg/dL (0.2-1); TOT PROT 7.2 g/dl (6.4-8.2)
== END 2020-05-29 07:05 | disposition left against medical advice (07) ==
LOC: JER 02:24
PROC: 3E033GC Introduction of Other Therapeutic Substance into Peripheral Vein, Percutaneous Approach (ICD-10-PCS; principal; 2020-05-29)
PROC: 3E033GC Introduction of Other Therapeutic Substance into Peripheral Vein, Percutaneous Approach (ICD-10-PCS; 2020-05-29)
DX: E16.0 Drug-induced hypoglycemia without coma (principal)
CPT/HCPCS: 36415; 80053; 82962; 83735; 85025; 93005; 93010; 99284-25

== ENCOUNTER 2021-03-09 17:27 | Inpatient (IN) | payer OTHER ==
[2021-03-09 17:49] VITALS: BMI 22.1
[2021-03-09] MEDS ORDERED: SODIUM CHLORIDE 0.9% 500 ML INFUS.BAG IV ONE ×2 (18:07→18:14)
[2021-03-09] MEDS ORDERED: ONDANSETRON 4 MG/2 ML VIAL IVPUSH ONE (18:07)
[2021-03-09] MEDS ORDERED: ONDANSETRON 4 MG/2 ML VIAL ONE (18:19)
[2021-03-09] MEDS ORDERED: FAMOTIDINE 20 MG/50 ML IVPB 20 MG/50 ML MG IVPB ONE ×2 (18:50→19:28)
[2021-03-09] MEDS ORDERED: ACETAMINOPHEN 1000 MG/100 ML BAG IVPB ONE (18:50)
[2021-03-09 19:16] LABS: HEMATOCRIT 45.8 % (35.4-49); HEMOGLOBIN 14.6 GM/dL (11.7-16.9); MCH 28.4 pg (25.7-33.7); MCHC 31.8 g/dl (32.0-35.9); MEAN CELL VOLUME 89.5 fl (80-96); MEAN PLT VOLUME 9.1 fl (7.5-11.1); PLATELET COUNT 271 10^3/uL (134-434); RBC 5.12 M/mm3 (4.00-5.60); RDW 13.9 % (11.9-15.9); WHITE BLOOD COUNT 12.2 K/mm3 (4.0-10.0)
[2021-03-09 19:17] LABS: VENOUS BASE EXCESS -17.3 mmol/L (-2-2); VENOUS O2 SATURATION 71.1 % (70-80); VENOUS PCO2 31.9 mmHg (38-52); VENOUS PH 7.138 (7.310-7.410)
[2021-03-09 19:18] LABS: URINE APPEARANCE CLEAR; URINE BILIRUBIN NEGATIVE (NEGATIVE); URINE COLOR YELLOW; URINE GLUCOSE (UA) 3+ (NEGATIVE); URINE KETONE 4+ (NEGATIVE); URINE LEUK ESTERASE NEGATIVE (NEGATIVE); URINE NITRITE NEGATIVE (NEGATIVE); URINE PROTEIN NEGATIVE (NEGATIVE); URINE UROBILINOGEN 0.2 mg/dL (0.2-1.0)
[2021-03-09] MEDS ORDERED: ACETAMINOPHEN INJECTION 100 ML IVPB ONE (19:27)
[2021-03-09 20:04] LABS: ALBUMIN 4.3 g/dl (3.4-5.0); ALK PHOS 99 U/L (45-117); ANION GAP 23 MMOL/L (8-16); BILIRUBIN,TOTAL 0.5 mg/dL (0.2-1); BLOOD UREA NITROGEN 20.8 mg/dL (7-18); CALCIUM 9.4 mg/dL (8.5-10.1); CHLORIDE 98 mmol/L (98-107); CO2 13 mmol/L (21-32); CREATININE 1.2 mg/dL (0.55-1.3); GLUCOSE,RANDOM 610 mg/dL (74-106); LIPASE 72 U/L (73-393); SGOT/AST 91 U/L (15-37); SGPT/ALT 134 U/L (13-61); SODIUM 134 mmol/L (136-145); TOT PROT 7.7 g/dl (6.4-8.2)
[2021-03-09] MEDS ORDERED: DEXTROSE 50%-WATER - 25 GM/50 ML VIAL IVPUSH PRN (20:12)
[2021-03-09] MEDS ORDERED: INSULIN REGULAR HUMAN 100 UNITS/ML *VIAL IVPUSH ONE (20:12)
[2021-03-09] MEDS ORDERED: LACTATED RINGERS SOLUTION 1000 ML INFUS.BAG IV ONE (20:15)
[2021-03-09] MEDS ORDERED: INSULIN REGULAR 100 UNITS in SODIUM CHLORIDE 99 ML IVPB SCH (20:15)
[2021-03-09] MEDS ORDERED: ONDANSETRON 4 MG/2 ML VIAL IVPUSH PRN (21:06)
[2021-03-09 21:32] LABS: CHLORIDE 105 mmol/L (98-107); SODIUM 137 mmol/L (136-145)
[2021-03-09 21:34] LABS: ANION GAP 23 MMOL/L (8-16); BLOOD UREA NITROGEN 20.7 mg/dL (7-18); CALCIUM 8.4 mg/dL (8.5-10.1); CO2 9 mmol/L (21-32)
[2021-03-09 21:38] LABS: CREATININE 1.1 mg/dL (0.55-1.3)
[2021-03-09] MEDS ORDERED: SODIUM CHLORIDE 0.9%/KCL 20 MEQ/1,000 ML INFUS.BAG IV SCH (22:00)
[2021-03-09 22:15] LABS: GLUCOSE,RANDOM 558 mg/dL (74-106)
[2021-03-10] MEDS ORDERED: D5-1/2NS+20 MEQ KCL - 20 MEQ/1,000 ML INFUS.BAG IV SCH (00:45)
[2021-03-10] MEDS ORDERED: INSULIN REGULAR 100 UNITS in SODIUM CHLORIDE 99 ML IVPB SCH (00:46)
[2021-03-10 01:21] LABS: BLOOD UREA NITROGEN 15.3 mg/dL (7-18); CALCIUM 7.5 mg/dL (8.5-10.1)
[2021-03-10 01:24] LABS: CREATININE 1.2 mg/dL (0.55-1.3)
[2021-03-10 06:58] LABS: BASO % 0.2 % (0-2.0); EOS % 0.2 % (0-4.5); HEMATOCRIT 36.1 % (35.4-49); LYMPH % 20.4 % (8-40); MCH 28.7 pg (25.7-33.7); MCHC 33.2 g/dl (32.0-35.9); MEAN CELL VOLUME 86.7 fl (80-96); MONO % 7.9 % (3.8-10.2); NEUT % 71.3 % (42.8-82.8); PLATELET COUNT 223 10^3/uL (134-434); RBC 4.16 M/mm3 (4.00-5.60); RDW 13.5 % (11.9-15.9); WHITE BLOOD COUNT 13.3 K/mm3 (4.0-10.0)
[2021-03-10 07:14] LABS: BLOOD UREA NITROGEN 10.2 mg/dL (7-18); CALCIUM 7.9 mg/dL (8.5-10.1); MAGNESIUM 2.2 mg/dL (1.8-2.4)
[2021-03-10 07:19] LABS: BILIRUBIN,TOTAL 0.3 mg/dL (0.2-1)
[2021-03-10 07:23] LABS: TOT PROT 5.7 g/dl (6.4-8.2)
[2021-03-10] MEDS ORDERED: ENOXAPARIN NA (PORCINE) 40 MG/0.4 ML DISP.SYRIN SQ SCH (10:00)
[2021-03-10] MEDS: INSULIN (LEVEMIR) 100 UNITS/ML UNITS SQ SCH ×2 (10:20→21:41)
[2021-03-10] MEDS: MUPIROCIN 2% TOPICAL OINTMENT FOR DECOLONIZATION NS SCH ×3 (10:25→21:40)
[2021-03-10 13:09] LABS: BLOOD UREA NITROGEN 8.2 mg/dL (7-18); CALCIUM 8.1 mg/dL (8.5-10.1)
[2021-03-10 13:13] LABS: CREATININE 1.1 mg/dL (0.55-1.3)
[2021-03-10] MEDS ORDERED: INSULIN (NOVOLOG) ASPART 100 UNITS/ML 10ML VIAL SQ SCH (16:30)
[2021-03-10 16:35] LABS: BLOOD UREA NITROGEN 7.4 mg/dL (7-18); CALCIUM 8.3 mg/dL (8.5-10.1)
[2021-03-10] MEDS: INSULIN SLIDING SCALE (NOVOLOG) 1 VIAL SQ SCH ×2 (17:55→21:41)
[2021-03-10] MEDS ORDERED: CHLORHEXIDINE GLUCONATE 4% CLEANSER FOR DECOLONIZATION TP SCH (22:00)
[2021-03-10 23:19] VITALS: BP 123/67; PULSE 78; TEMP 97.9
[2021-03-10] MEDS ORDERED: ONDANSETRON 4 MG/2 ML VIAL IVPUSH PRN (23:29)
[2021-03-10] MEDS ORDERED: DEXTROSE 50%-WATER - 25 GM/50 ML VIAL IVPUSH PRN (23:29)
[2021-03-11] MEDS: INSULIN SLIDING SCALE (NOVOLOG) 1 VIAL SQ SCH ×2 (06:31→11:18)
[2021-03-11] MEDS ORDERED: INSULIN (LEVEMIR) 100 UNITS/ML UNITS SQ SCH (07:00)
[2021-03-11 09:30] LABS: HEMATOCRIT 39.4 % (35.4-49); HEMOGLOBIN 12.8 GM/dL (11.7-16.9); MCH 28.1 pg (25.7-33.7); MCHC 32.5 g/dl (32.0-35.9); MEAN CELL VOLUME 86.5 fl (80-96); PLATELET COUNT 228 10^3/uL (134-434); RBC 4.56 M/mm3 (4.00-5.60); RDW 13.3 % (11.9-15.9); WHITE BLOOD COUNT 7.6 K/mm3 (4.0-10.0)
[2021-03-11] MEDS ORDERED: ENOXAPARIN NA (PORCINE) 40 MG/0.4 ML DISP.SYRIN SQ SCH (10:00)
[2021-03-11 10:01] LABS: ALBUMIN 3.1 g/dl (3.4-5.0); BLOOD UREA NITROGEN 14.4 mg/dL (7-18); CALCIUM 8.6 mg/dL (8.5-10.1)
[2021-03-11 10:04] LABS: CREATININE 0.7 mg/dL (0.55-1.3); PHOSPHOROUS 3.2 mg/dL (2.5-4.9)
[2021-03-11 10:05] LABS: TOT PROT 6.1 g/dl (6.4-8.2)
[2021-03-11 10:06] LABS: BILIRUBIN,TOTAL 0.5 mg/dL (0.2-1)
[2021-03-11] MEDS ORDERED: INSULIN SLIDING SCALE (NOVOLOG) 1 VIAL SQ SCH (13:53)
[2021-03-12] MEDS ORDERED: INSULIN (LEVEMIR) 100 UNITS/ML UNITS SQ SCH (07:00)
== END 2021-03-11 16:55 | disposition home or self-care (01) | DRG 420 ==
LOC: JER 17:27 → JERBED 20:38 → JICU 23:26 → J6S 03-10 23:35
PROVIDERS: ADMIT Internal Medicine Pulmonary Disease; ATTEND Nurse Practitioner Family
DX: E10.10 Type 1 diabetes mellitus with ketoacidosis without coma (principal); J45.909 Unspecified asthma, uncomplicated; D72.829 Elevated white blood cell count, unspecified; E87.1 Hypo-osmolality and hyponatremia; E86.0 Dehydration; R74.8 Abnormal levels of other serum enzymes
CPT/HCPCS: 36415; 71046-TC-FY; 80048; 80053; 81003; 82010; 82803; 82962; 83036; 83690; 83735; 84100; 85025; 85027; 87086; 87804; 93005; 93010; 99285-25; C9803-CS; U0003; U0005

== ENCOUNTER 2021-05-09 17:47 | Emergency (ER) | payer OTHER ==
[2021-05-09 18:08] VITALS: TEMP 97.8; BMI 19.8
[2021-05-09] MEDS ORDERED: FAMOTIDINE 20 MG/50 ML IVPB 20 MG/50 ML MG IVPB ONE ×2 (19:58→20:08)
[2021-05-09] MEDS ORDERED: MAG HYDROX/AL HYDROX/SIMETH -MYLANTA- ORAL SUSPENSION PO ONE (19:58)
[2021-05-09] MEDS ORDERED: SODIUM CHLORIDE 0.9% 1000 ML INFUS.BAG IV ONE (19:58)
[2021-05-09] MEDS ORDERED: MAG HYDROX/AL HYDROX/SIMETH 30 ML UNIT-DOSE CUP ONE (20:08)
[2021-05-09 20:52] LABS: BASO % 0.4 % (0-2.0); EOS % 0.5 % (0-4.5); HEMOGLOBIN 15.4 GM/dL (11.7-16.9); LYMPH % 18.6 % (8-40); MCH 29.3 pg (25.7-33.7); MCHC 33.6 g/dl (32.0-35.9); MEAN CELL VOLUME 87.2 fl (80-96); MEAN PLT VOLUME 7.4 fl (7.5-11.1); MONO % 12.4 % (3.8-10.2); NEUT % 68.1 % (42.8-82.8); PLATELET COUNT 316 10^3/uL (134-434); RBC 5.27 M/mm3 (4.00-5.60); RDW 12.8 % (11.9-15.9); WHITE BLOOD COUNT 11.7 K/mm3 (4.0-10.0)
[2021-05-09 21:20] LABS: ALBUMIN 3.9 g/dl (3.4-5.0); BLOOD UREA NITROGEN 13.9 mg/dL (7-18); CALCIUM 9.4 mg/dL (8.5-10.1); MAGNESIUM 1.9 mg/dL (1.8-2.4)
[2021-05-09 21:24] LABS: BILIRUBIN,TOTAL 0.5 mg/dL (0.2-1); TOT PROT 7.3 g/dl (6.4-8.2)
[2021-05-09 22:24] VITALS: BP 129/85; PULSE 76
== END 2021-05-09 22:42 | disposition home or self-care (01) ==
LOC: JER 17:47
PROC: 3E033GC Introduction of Other Therapeutic Substance into Peripheral Vein, Percutaneous Approach (ICD-10-PCS; principal; 2021-05-09)
DX: R11.2 Nausea with vomiting, unspecified (principal)
CPT/HCPCS: 36415; 80053; 82010; 83735; 85025; 93005; 93010; 99284-25

== ENCOUNTER 2021-05-17 19:21 | Emergency (ER) | payer OTHER ==
[2021-05-17 19:48] VITALS: BP 115/66; PULSE 77; TEMP 98; BMI 20.8
[2021-05-17] MEDS ORDERED: KETOROLAC TROMETHAMINE 30 MG/1 ML VIAL IM ONE (20:08)
[2021-05-17] MEDS ORDERED: KETOROLAC TROMETHAMINE 30 MG/1 ML VIAL ONE (20:10)
== END 2021-05-17 20:37 | disposition home or self-care (01) ==
LOC: JER 19:21
PROC: 3E023GC Introduction of Other Therapeutic Substance into Muscle, Percutaneous Approach (ICD-10-PCS; principal; 2021-05-17)
DX: S93.492A Sprain of other ligament of left ankle, initial encounter (principal); X50.9XXA Other and unspecified overexertion or strenuous movements or postures, initial encounter
CPT/HCPCS: 73610-TC-LT-FY; 73630-TC-LT; 99284-25